=== PATIENT | male | born 1975 | race Caucasian/White ===

== ENCOUNTER 2017-04-18 08:08 | Emergency (ER) | payer MEDICAID ==
[~2017-04-18] VITALS: Ht 165.1 cm; Wt 72.6 kg
[~2017-04-18 08:08] MED LIST: AUG875 PO; FLUT9.9S NS; PRED20TA PO; TRAM50TA2 PO
[2017-04-18 08:10] VITALS: Ht 165.1 cm; Wt 72.6 kg
--- NOTE | 2017-04-18 10:27 | RADRPT ---
PROCEDURE: XR Lumbar Spine. CLINICAL INDICATION: Low back pain. TECHNIQUE: 2 views of the lumbar spine are available for review COMPARISON: None available FINDINGS: There is maintenance of normal lumbar lordosis. Alignment is intact. No acute fracture or disloca tion is seen. The vertebral body heights are preserved. There are multilevel mild degenerative changes of lumbar s pine, most pronounced at L5-S1. IMPRESSION: 1. No acute fracture or dislocation. 2. Multilevel mild discogenic disease of lumbar spine, most pronounced at L5-S1. RPTAT: UU .Emma Ragsdale MD, Date Time Electronically viewed and signed by .Emma Ragsdale MD, on 04/18/2017 10:27 .N/
--- NOTE | 2017-04-18 10:39 | RADRPT ---
PROCEDURE: XR Sacrum and Coccyx. CLINICAL INDICATION: Pain. Trauma. TECHNIQUE: Sacrococcygeal x-rays, 3 views. COMPARISON: Lumbar spine x-rays 04/18/2017. FINDINGS: Bony mineralization appears normal. Bony cortices are smooth and contiguous. The sacroiliac joints a re well maintained. Sacrococcygeal alignment is normal. Mild lumbosacral degenerative disc disease i s observed. IMPRESSION: No evidence of acute osseous abnormality. Mild lumbosacral degenerative disc disease. RPTAT: AAQQ .Kae Cavazos MD, MD Date Time Electronically viewed and signed by .Kae Cavazos MD, MD on 04/18/2017 10:39 .T/
[2017-04-18 11:12] VITALS: BP 126/65; PULSE 74; RESP 19
--- NOTE | 2017-04-18 13:40 | ERD ---
ER Documentation Chief Complaint Chief Complaint back pain since HPI 41-year-old male presents one year status post fall downstairs with injury to the back. Patient states that his back has been hurting worse since . States that the pain is similar to the injury 1 year ago and rated at 7/10 worse with movement. Has not taken any medications to relieve the symptoms. Patient denies saddle paresthesia, incontinence, urinary retention, rapidly progressive neurological deficits. Patient also denies fever, chills, night sweats, IVDU, or history of cancer. Patient has no other complaints and describes no other associated manifestations. Nursing notes have been reviewed and are consistent with history given. ROS All systems reviewed and are negative except as per history of present illness. Medications Home Meds Active Scripts Tramadol HCl (Tramadol HCl) 50 Mg Tablet, 50 MG PO Q6H Y for PAIN, #20 TAB Prov:JENNA RONQUILLO 03/31/15 Fluticasone Propionate (Flonase Allergy Relief) 9.9 Ml [place].susp, 9.9 ML NS BID for 7 Days Prov:JENNA RONQUILLO 03/31/15 Prednisone* (Prednisone*) 20 Mg Tab, 40 MG PO DAILY for 4 Days, TAB Prov:JENNA RONQUILLO 03/31/15 Amoxicillin-Clavulanate K* (Augmentin*) 875 Mg Tab, 875 MG PO BID for 10 Days Prov:JENNA RONQUILLO 03/31/15 Allergies Allergies: Coded Allergies: No Known Allergy (Unverified , 04/18/17) PMhx/Soc Medical and Surgical Hx: pt denies Medical Hx, pt denies Surgical Hx History of Surgery: No Anesthesia Reaction: No Hx Neurological Disorder: No Hx Respiratory Disorders: No Hx Cardiac Disorders: Yes (HEART MURMUR ) Hx Psychiatric Problems: No Hx Miscellaneous Medical Probl: No Hx Alcohol Use: Yes (socially) Hx Substance Use: No Hx Tobacco Use: Yes Smoking Status: Current every day smoker Physical Exam Vitals Vital Signs Date Time Temp Pulse Resp B/P Pulse Ox O2 Delivery O2 Flow Rate FiO2 04/18/17 11:12 74 19 126/65 100 Room Air 04/18/17 08:10 97.2 69 18 124/62 99 Physical Exam Const: Well-appearing. NAD. Back: No midline, flank or CVA tenderness. Negative straight leg raise. Range of motion decreased secondary to pain. Neur: No saddle anesthesia. Neurovascularly intact bilaterally. Normal ambulation. Eyes: Non-injected; No discharge. EOMI and VICKY bilaterally. Neck: No tenderness. No cervical lymphadenopathy, or masses palpated. Supple ~ No meningismus. Pulm: Good air movement in upper and lower respiratory tracts. Clear to auscultation bilaterally. No dyspnea or stridor. Cardio: Regular rate and rhythm; No murmurs, gallops or rubs auscultated. Radia pulses 2+ bilaterally. No cyanosis noted. Capillary refill less than 2 seconds. Abd: Normal bowel sounds. No palpable mass. MS: Normal motor strength, normal tone with gross examination. Skin: No petechiae or rashes. Good turgor. Psych: Normal Mood and Affect. Procedures/MDM Patient presenting with a chief complaint of back pain. Mechanism of injury 1 year ago but patient states that the pain feels the same. Requesting pain medication. 5/325 mg [place] given in the ED with adequate relief of symptoms. X -ray of the site was obtained due to history of trauma, read by the radiologist , given the following impression: 1. No acute fracture or dislocation. 2. Multilevel mild discogenic disease of lumbar spine, most pronounced at L5- S1. I have no suspicion for cauda equina or other neurovascular compromise or acute bony pathology. Most likely diagnosis is sprain versus strain versus DDD. I have recommended [id number] ibuprofen and Tylenol for discomfort. I have spoke with the patient regarding their condition and future management. They have verbally responded that they understand their status and treatment plan. The patients vitals are stable, and their current condition is appropriate for discharge. The patient will be given discharge instructions with return precautions. Departure Diagnosis: Primary Impression: Back pain Back pain location: low back pain Chronicity: unspecified Back pain laterality: right Sciatica presence: without sciatica Qualified Code: M54.5 - Right-sided low back pain without sciatica, unspecified chronicity Additional Impression: Injury of back Encounter type: initial encounter Qualified Code: S39.92XA - Injury of back , initial encounter Condition: Stable Patient Instructions: Back Sprain/Strain Referrals: COMMUNITY CLINICS YOU HAVE RECEIVED A MEDICAL SCREENING EXAM AND THE RESULTS INDICATE THAT YOU DO NOT HAVE A CONDITION THAT REQUIRES URGENT TREATMENT IN THE EMERGENCY DEPARTMENT. FURTHER EVALUATION AND TREATMENT OF YOUR CONDITION CAN WAIT UNTIL YOU ARE SEEN IN YOUR DOCTORS OFFICE WITHIN THE NEXT 1-2 DAYS. IT IS YOUR RESPONSIBILITY TO MAKE AN APPOINTMENT FOR FOLOW-UP CARE. IF YOU HAVE A PRIMARY DOCTOR --you should call your primary doctor and schedule an appointment IF YOU DO NOT HAVE A PRIMARY DOCTOR YOU CAN CALL OUR PHYSICIAN REFERRAL HOTLINE AT IF YOU CAN NOT AFFORD TO SEE A PHYSICIAN YOU CAN CHOSE FROM THE FOLLOWING [facility] [address] [facility]. [facility] [address] [facility]. [place] [address] [facility]. [facility] [address] [facility] [address] [facility]. [facility]. [address] [facility] ([facility]) Usted se casanova hecho un examen mdico de control que le indica que no est en aracelis condicin que requiera tratamiento urgente en el Departamento de Emergencia. Un estudio ms profundo y el tratamiento de sevilla condicin pueden esperar sin ningn riesgo hasta que usted sea atendida/o en el consultorio de sevilla mdico o aracelis cl mary. Es responsabilidad suya arreglar aracelis yadi para el seguimiento del ping. MANEJO DE CONDICIONES NO URGENTES EN EL FUTURO 1) Si usted tiene un mdico de atencin primaria: Usted debera llamar a sevilla mdico de atencin primaria antes de venir al departamento de emergencia. Despus de las horas de consultorio, sevilla doctor o sevilla asociado/a est disponible por telfono. El mdico o enfermero de zacarias en el servicio telefnico puede asesorarle por angela medio para atender el problema, o ping contrario se puede programar aracelis yadi. 2) Si usted no tiene un mdico de atencin primaria: Llame al mdico o clnica de referencia que aparece abajo maulik las horas de consultorio para hacer aracelis yadi para que le vean. CLINICAS: [facility] [phone] [facility] [phone] [place] [phone] [place] [id number] [phone] [place] [id number] [phone] [facility]. [phone] [address] Additional Instructions: Rama un seguimiento con sevilla PCP dentro de los prximos 1-3 gonzáles para aracelis evaluaci n ms completa y aracelis posible derivacin a un especialista. Devuelva el departamento de emergencia inmediatamente si los sntomas empeoran o cambian. Si tiene alguna pregunta con respecto a los medicamentos, consulte con sevilla farmac utico o con nosotros antes de salir. Si se producen reacciones adversas mientras bessie branden medicamentos, suspenda el tratamiento y regrese inmediatamente al servicio de urgencias. Reddick branden medicamentos segn las indicaciones y complete el curso completo del tratamiento. ARMEN BOWSER PA-C Apr 18, 2017 13:40
== END 2017-04-18 11:12 | disposition home or self-care (01) ==
LOC: FTE 08:08
DX: S39.92XA Unspecified injury of lower back, initial encounter (principal); F17.210 Nicotine dependence, cigarettes, uncomplicated; W10.9XXA Fall (on) (from) unspecified stairs and steps, initial encounter; Y92.9 Unspecified place or not applicable
CPT/HCPCS: 72100; 72220; Z7502

== ENCOUNTER 2017-06-17 08:58 | Emergency (ER) | END 2017-06-17 12:19 | disposition home or self-care (01) ==